=== PATIENT | female | born 1995 | race Two or more races ===

== ENCOUNTER 2023-11-05 15:47 | Outpatient (REF) | payer MEDICAID, SELFPAY ==
[2023-11-05 21:27] LABS: Influenza A PCR NEGATIVE (Negative); Influenza B PCR NEGATIVE (Negative); Resp Syncy Virus RNA Qual PCR NEGATIVE (Negative); SARS COV2 PCR INHOUSE NEGATIVE (Negative)
== END 2023-11-05 15:48 | disposition home or self-care (01) ==
LOC: HO.CHCLNP 15:47
PROVIDERS: Visit Provider Pediatrics
DX: J06.9 Acute upper respiratory infection, unspecified (principal); Z11.52 Encounter for screening for COVID-19; Z20.828 Contact with and (suspected) exposure to other viral communicable diseases
CPT/HCPCS: 0241U